=== PATIENT | female | born 1980 | race Caucasian/White ===

== ENCOUNTER 2017-03-27 05:03 | Day surgery (SDC) | payer OTHER ==
[2017-03-26 10:19] VITALS: BMI 25.4
[2017-03-27] MEDS ORDERED: oxyCODONE HCL 5 MG TABLET PO PRN (10:45)
[2017-03-27] MEDS ORDERED: ONDANSETRON 4 MG/2 ML VIAL IVPUSH PRN (10:45)
[2017-03-27] MEDS ORDERED: LACTATED RINGERS SOLUTION 1,000 ML IV SCH (10:45)
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
[2017-03-27] MEDS ORDERED: BACITRACIN 15 GM TUBE TOPICAL OINTMENT ONE (12:04)
[2017-03-27] MEDS ORDERED: BUPIVACAINE HCL/PF 0.5% (5MG/ML) 10 ML VIAL ONE (12:12)
[2017-03-27] MEDS ORDERED: NEOSTIGMINE METHYLSULFATE 0.5 MG/ML - 10 ML MDV ONE (12:24)
[2017-03-27] MEDS ORDERED: ROCURONIUM BROMIDE 50 MG/5 ML VIAL ONE (12:24)
[2017-03-27] MEDS ORDERED: MIDAZOLAM HCL 2 MG/2 ML SINGLE DOSE VIAL ONE (12:24)
--- NOTE | 2017-03-27 12:37 | OP ---
Operative Note - Note: Operative Date: 03/27/17 Pre-Operative Diagnosis: Laparoscopic sterilization salpingectomy. Operation: Laparoscopic bilateral salpingectomy Findings: Normal uterus, ovaries and tubes Post-Operative Diagnosis: Same as Pre-op Surgeon: Hemal Bobby Electronic Engraver: Vargas Theodore Anesthesiologist/STEAMFITTER APPRENTICE: Cas Mcdaniels Anesthesia: General Specimens Removed: Bilateral fallopian tubes Estimated Blood Loss (mls): 0 Drains & Tubes with Location: Bejarano cath Drains, Volume Out (mls): 100 Blood Volume Replaced (mls): 5 Fluid Volume Replaced (mls): 800 Operative Report Dictated: Yes
[2017-03-27] MEDS ORDERED: ceFAZolin SODIUM 1 GM VIAL IVPB ONE (13:10)
[2017-03-27] MEDS ORDERED: BUPIVACAINE HCL/PF 0.5% (5MG/ML) 10 ML VIAL IJ ONE ×2 (13:19→13:36)
[2017-03-27 15:28] VITALS: TEMP 97.7
[2017-03-27 16:32] VITALS: BP 128/81; PULSE 92
--- NOTE | 2017-03-28 07:18 | OP ---
DATE OF OPERATION: 03/27/2017 PREOPERATIVE DIAGNOSIS: Laparoscopic sterilization via salpingectomy. POSTOPERATIVE DIAGNOSIS: Laparoscopic sterilization via salpingectomy. PROCEDURES PERFORMED: Laparoscopic bilateral salpingectomy. SURGEON: Hemal Bobby M.D. OVERSIZE LOAD PILOT ESCORT: Vargas Theodore M.D. ANESTHESIOLOGIST: Cas Mcdaniels M.D. ANESTHESIA: General. COMPLICATIONS: None. PATHOLOGY: Bilateral fallopian tubes. INTRAVENOUS FLUIDS: 800 mL. URINE OUTPUT: 100 mL. ESTIMATED BLOOD LOSS: 5 mL. COMPLICATIONS: None. FINDINGS: Normal uterus, fallopian tubes and ovaries. Normal visualized portions of liver, stomach, gallbladder and intestine. DESCRIPTION OF PROCEDURE: The patient was met preoperatively. The risks, benefits and alternatives of surgery were discussed in detail. All questions were answered. The patient was then brought to the OR, with the IV running. She was placed on the surgical table in the supine position. General endotracheal anesthesia was achieved without difficulty. The patient was then placed in a dorsal lithotomy position using adjustable Reginald stirrups. She was examined under anesthesia. A small anteverted uterus was noted, with no pelvic or adnexal masses. The patient was then prepped and draped in the usual sterile fashion. A Bejarano catheter was introduced inside the bladder and left to drain to gravity. A uterine manipulator was introduced with sterile technique. The surgeons then proceeded with the laparoscopy. The patient was prepped and draped in the usual sterile fashion. A 5-mm intraumbilical incision was made with a knife. A Veress needle was introduced through the umbilical incision. Pneumoperitoneum was achieved, with the intra-abdominal pressure limited to 15 mmHg. Once the pneumoperitoneum was achieved, the Veress needle was removed, and an Optiview trocar was placed through the abdominal incision. A second 5-mm incision was made in the left lower quadrant, and a 5-mm trocar was introduced under direct visualization. Another 5-mm incision was made in the right lower quadrant and a 5-mm trocar was introduced under direct visualization. A LigaSure instrument was then used to excise both fallopian tubes, with good hemostasis. The specimen was sent to Pathology for examination. Once the procedure was completed, all of the instruments were removed. Pneumoperitoneum was reduced. Sponge, lap and instrument counts were correct. The patient was returned to the supine position and transferred to the recovery room awake and in stable condition. Hodan [id number]
--- NOTE | 2017-03-31 16:28 | PATH ---
Surgical Pathology Report Patient Name: ISATU BROOKS [facility]. Rec. #: [id number] /Age/Gender: 1980 (Age: 37) / F Account: [id number] Location: [facility] Taken: 03/27/2017 Received: 03/30/2017 Reported: 03/31/2017 Physicians: Hemal Bobby M.D. Specimen(s) Received A: LEFT FALLOPIAN TUBE B: RIGHT FALLOPIAN TUBE Clinical History Sterilization Final Diagnosis A. FALLOPIAN TUBE, LEFT, LAPAROSCOPIC SALPINGECTOMY: FULL LUMINAL PORTION OF UNREMARKABLE FALLOPIAN TUBE. B. FALLOPIAN TUBE, RIGHT, LAPAROSCOPIC SALPINGECTOMY: FULL LUMINAL PORTION OF UNREMARKABLE FALLOPIAN TUBE. Electronically Signed Ivelisse Anderson M.D. Gross Description A. Received in formalin labeled "left fallopian tube," is a 4 cm in length fimbriated fallopian tube. The outer surface is haskins purple and smooth. Sectioning reveals an unremarkable lumen. Tugger Operator sections are submitted in 2 cassettes as follows: 1-fimbria; 2-cross sections of appendix. B. Received in formalin labeled "right fallopian tube," is a 4 cm in length fimbriated fallopian tube. The outer surface is crawley purple and smooth. Sectioning reveals an unremarkable lumen. Tugger Operator sections are submitted in 2 cassettes as follows: 1-fimbria; 2-cross sections of fallopian tube. 03/30/201703/30/2017
== END 2017-03-27 16:32 | disposition home or self-care (01) ==
LOC: JASU-SURG 05:03
PROVIDERS: ATTEND Obstetrics & Gynecology
PROC: 0U574ZZ Destruction of Bilateral Fallopian Tubes, Percutaneous Endoscopic Approach (ICD-10-PCS; principal; 2017-03-27 12:00)
DX: Z30.2 Encounter for sterilization (principal)
CPT/HCPCS: 84703; 88302-TC; 94760

== ENCOUNTER 2019-01-16 22:18 | Emergency (ER) | payer OTHER ==
[2019-01-16 22:26] VITALS: BP 137/95; PULSE 73; TEMP 97.7; BMI 25.3
[2019-01-16] MEDS ORDERED: KETOROLAC TROMETHAMINE 60 MG/2 ML VIAL IM ONE (22:36)
[2019-01-16] MEDS ORDERED: KETOROLAC TROMETHAMINE 60 MG/2 ML VIAL ONE (22:39)
--- NOTE | 2019-01-16 22:41 | PDOC ---
History of Present Illness - General Chief Complaint: Pain, Acute Stated Complaint: NECK PAIN/R EAR PAIN/ HEADACHE Time Seen by Provider: 01/16/19 22:33 History Source: Patient - History of Present Illness Timing/Duration: other Severity: moderate Past History - Past Medical History Allergies/Adverse Reactions: Allergies Allergy/AdvReac Type Severity Reaction Status Date / Time No Known Allergies Allergy Verified 01/16/19 22:23 Home Medications: Ambulatory Orders Albuterol Sulfate Inhaler - [Ventolin HFA Inhaler -] 2 inh PO PRN 09/29/14 Ibuprofen [Motrin -] 400 mg PO QID 03/26/17 Cyclobenzaprine HCl [Flexeril -] 10 mg PO HS #9 tablet 01/16/19 Ibuprofen [Motrin -] 800 mg PO Q6H #30 tablet 01/16/19 Anemia: No Asthma: Yes (on albuterol PRN) Cancer: No Cardiac Disorders: No CVA: No COPD: No CHF: No Dementia: No Diabetes: No GI Disorders: No Disorders: No HTN: Yes (BORDERLINE) Hypercholesterolemia: No Liver Disease: No Seizures: No Thyroid Disease: No - Surgical History Abdominal Surgery: Yes (TUMMY TUCK) - Immunization History Td Vaccination: Yes Immunization Up to Date: No - Suicide/Smoking/Psychosocial Hx Smoking Status: Yes Smoking History: Current every day smoker Have you smoked in the past 12 months: Yes Number of Cigarettes Smoked Daily: 3 If you are a former smoker, when did you quit?: 3 yrs ago Information on smoking cessation initiated: Yes Hx Alcohol Use: Yes Drug/Substance Use Hx: No Substance Use Type: Alcohol Hx Substance Use Treatment: No Review of Systems - Review of Systems Constitutional: No: Chills, Fever ABD/GI: No: Nausea, Vomiting Musculoskeletal: Yes: Joint Pain Neurological: No: Headache, Numbness, Tingling, Weakness, Dizziness *Physical Exam - Vital Signs Last Vital Signs Temp Pulse Resp BP Pulse Ox 97.7 F 73 18 137/95 100 01/16/19 22:23 01/16/19 22:23 01/16/19 22:23 01/16/19 22:23 01/16/19 22:23 - Physical Exam General Appearance: Yes: Appropriately Dressed. 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 No headache, dizziness, nausea, vomiting, or sensory changes. Has not taken anything for pain See exam Neck strain vs spasm +ttp to R trapezius and sternocleidomastoid No red flags at this time Dose of toradol given Dc w/ pain control PMD f/u as needed *DC/Admit/Observation/Transfer Diagnosis at time of Disposition: Neck pain - Discharge Dispostion Disposition: HOME Condition at time of disposition: Good - Referrals Referrals: Ivette Parker [Primary Care Provider] - - Patient Instructions Printed Discharge Instructions: DI for Neck Pain Additional Instructions: Take medication for pain as needed If pain persists, please follow up with your PMD - Post Discharge Activity
== END 2019-01-16 22:50 | disposition home or self-care (01) ==
LOC: JER 22:18
PROC: 3E0233Z Introduction of Anti-inflammatory into Muscle, Percutaneous Approach (ICD-10-PCS; principal; 2019-01-16)
DX: M54.2 Cervicalgia (principal); I10 Essential (primary) hypertension; J45.909 Unspecified asthma, uncomplicated
CPT/HCPCS: 99282-25

== ENCOUNTER 2019-06-29 18:29 | Emergency (ER) | payer OTHER ==
[2019-06-29 18:48] VITALS: BP 130/71; PULSE 144; TEMP 101.4; BMI 25.4
[2019-06-29] MEDS ORDERED: ACETAMINOPHEN 325 MG TABLET (FP) PO ONE (18:57)
[2019-06-29] MEDS ORDERED: ACETAMINOPHEN 325 MG TABLET (FP) ONE (18:58)
--- NOTE | 2019-06-29 18:59 | PDOC ---
History of Present Illness - General Chief Complaint: Cold Symptoms Stated Complaint: FLU LIKE SYMPTOMS Time Seen by Provider: 06/29/19 18:50 History Source: Patient - History of Present Illness Timing/Duration: reports: just prior to arrival Associated Symptoms: reports: fever/chills, muscle aches. denies: chest pain/ soreness, cough, earache, facial pain, headache, lightheadedness, nasal congestion, nasal drainage, shortness of breath, sore throat, wheezing Past History - Past Medical History Allergies/Adverse Reactions: Allergies Allergy/AdvReac Type Severity Reaction Status Date / Time No Known Allergies Allergy Verified 06/29/19 18:45 Home Medications: Ambulatory Orders Albuterol Sulfate Inhaler - [Ventolin HFA Inhaler -] 2 inh PO PRN 09/29/14 Ibuprofen [Motrin -] 400 mg PO QID 03/26/17 Cyclobenzaprine HCl [Flexeril -] 10 mg PO HS #9 tablet 01/16/19 Ibuprofen [Motrin -] 800 mg PO Q6H #30 tablet 01/16/19 Oseltamivir Phosphate [Tamiflu] 75 mg PO BID #10 capsule 06/29/19 Anemia: No Asthma: Yes (on albuterol PRN) Cancer: No Cardiac Disorders: No CVA: No COPD: No CHF: No Dementia: No Diabetes: No GI Disorders: No Disorders: No HTN: Yes (BORDERLINE) Hypercholesterolemia: No Liver Disease: No Seizures: No Thyroid Disease: No - Surgical History Abdominal Surgery: Yes (TUMMY TUCK) - Immunization History Td Vaccination: Yes Immunization Up to Date: No - Psycho Social/Smoking Cessation Hx Smoking Status: Yes Smoking History: Current every day smoker Have you smoked in the past 12 months: Yes Number of Cigarettes Smoked Daily: 5 If you are a former smoker, when did you quit?: 3 yrs ago Information on smoking cessation initiated: No Hx Alcohol Use: No Drug/Substance Use Hx: No Substance Use Type: Alcohol Hx Substance Use Treatment: No Review of Systems - Review of Systems Constitutional: Yes: Fever, Malaise HEENTM: No: Ear Pain, Throat Pain Respiratory: No: Cough, Shortness of Breath Cardiac (ROS): No: Chest Pain *Physical Exam - Vital Signs Last Vital Signs Temp Pulse Resp BP Pulse Ox 101.4 F H 144 H 20 130/71 97 06/29/19 18:46 06/29/19 18:46 06/29/19 18:46 06/29/19 18:46 06/29/19 18:46 - Physical Exam General Appearance: Yes: Appropriately Dressed. No: Apparent Distress HEENT: positive: Normal ENT Inspection, Normal Voice, TMs Normal, Pharynx Normal. negative: Scleral Icterus (R), Scleral Icterus (L) Neck: positive: Supple Respiratory/Chest: positive: Lungs Clear, Normal Breath Sounds. 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 No other symptoms at this time. Did not get the flu vaccine this season see exam Viral syndrome, r/o flu -Dose of tylenol for low grade fever in ED 06/29/19 19:45 Pt declined to wait for flu swab. Prefers to call for results. Will dc with Tamiflu with instructions to only take meds if flu swab is positive. Otherwise supportive treatment. Contact precautions given if flu positive. Rpt T 99.1 and HR 116. 0 Discharge - Discharge Information Problems reviewed: Yes Clinical Impression/Diagnosis: Viral syndrome Condition: Good Disposition: HOME - Additional Discharge Information Prescriptions: Oseltamivir Phosphate [Tamiflu] 75 mg PO BID #10 capsule - Follow up/Referral - Patient Discharge Instructions Patient Printed Discharge Instructions: DI for Viral Syndrome Additional Instructions: You may have the flu and was started on Tamiflu. You can call for the results at [phone] in about half an hour. Only take Tamiflu if your flu test is positive. Either way, rest, drink plenty fluids, and take Motrin or Tylenol as needed for pain and/or fever - Post Discharge Activity Work/Back to School Note: Back to Work
[2019-06-30] MEDS ORDERED: VANCOMYCIN 1 GRAM (PRE-DOCKED) 1,000 MG/250 ML BAG IVPB ONE (03:35)
== END 2019-06-29 20:00 | disposition home or self-care (01) ==
LOC: JERFT 18:29
DX: B34.9 Viral infection, unspecified (principal); J45.909 Unspecified asthma, uncomplicated; I10 Essential (primary) hypertension; F17.210 Nicotine dependence, cigarettes, uncomplicated
CPT/HCPCS: 87804; 99283-25